=== PATIENT | female | born 1985 | race Caucasian/White ===

== ENCOUNTER 2021-11-22 12:59 | Emergency (ER) | payer SELFPAY ==
[2021-11-22 13:06] VITALS: BP 171/104; PULSE 110; RESP 16; O2SAT 95
--- NOTE | 2021-11-22 13:19 | W.ED.PSYCHS ---
HPI - Psych General: Chief Complaint: Psychiatric Symptoms Stated Complaint: PSYCH EVAL Time Seen by Provider: 11/22/21 13:01 Source: patient Mode of arrival: EMS Limitations: no limitations History of Present Illness: 36-year-old female presents to the emergency room stating she needs to be admitted to the stress unit. She not been taking any of her medications for the last 3 to 4 days. She has been staying at the [facility] and drank several beers this morning. She denies any homicidal or suicidal ideation no auditory or visual hallucinations. Patient has flat affect and is cooperative. She repeatedly denies any acute psychotic symptoms or suicidal or homicidal thoughts. When pressed as to what her specific complaint is she states she just does not feel she is doing well Onset (ago): hour(s) Duration: constant History of same: Yes Relieving factors: none Exacerbating factors: none Context: recent alcohol abuse Associated symptoms: Deny auditory hallucinations, visual hallucinations, delusions, depression, homicidal ideation, suicidal ideation or racing thoughts Treatments prior to arrival: none Review of Systems Const: Denies: fever(s), chills, body aches, change in appetite, fatigue or malaise ENMT: Denies: throat pain, ear or mastoid pain, nasal discharge or nasal congestion Card: Denies: chest pain, palpitations, irregular heart rhythm, edema, dyspnea on exertion or orthopnea Resp: Denies: dyspnea, productive cough or non-productive cough GI: Denies: abdominal pain, nausea, vomiting, hematemesis, coffee ground emesis, diarrhea, constipation, bloating, hematochezia or melena : Denies: flank pain, difficulty voiding, dysuria, urinary frequency or urinary urgency Skin/Breast: Denies: rash or pruritus Psych: Denies: depression, visual hallucinations, auditory hallucinations, suicidal ideation or homicidal ideation Physical Exam Const: GENERAL APPEARANCE: cooperative and comfortable ORIENTATION/CONSCIOUSNESS: Yes awake, Yes oriented to person, Yes oriented to place and Yes oriented to time HENMT: COMMON NORMALS: normocephalic, atraumatic and hearing grossly normal bilaterally HEAD & SCALP: normocephalic and atraumatic Neck/C-Spine: COMMON NORMALS: no JVD Resp: COMMON NORMALS: normal respiratory effort, No retractions, No use of accessory muscles and clear to auscultation bilaterally AUSCULTATION: clear to auscultation bilaterally Cardio: COMMON NORMALS: no JVD, regular rate, regular rhythm and No murmurs present (Cardio) RATE: regular rate RHYTHM: regular rhythm GI: COMMON NORMALS: Soft to palpation and No hepatosplenomegaly present AUSCULTATION: Yes normoactive bowel sounds PALPATION: Yes Soft to palpation, No Tenderness to palpation present (GI), No Guarding due to palpation present (GI) and Yes No hepatosplenomegaly present Extremity: COMMON NORMALS: normal to inspection, capillary refill normal, no clubbing, cyanosis or edema, no calf tenderness and no pedal edema Neuro: SENSORIUM/ORIENTATION: Yes oriented to person, Yes oriented to place and Yes oriented to time Psych: THOUGHT CONTENT: No delusions Skin: COMMON NORMALS: no rashes or lesions noted GENERAL SKIN EXAM: no rashes or lesions noted Course Vital Signs: Vital signs: Vital Signs Pulse Rate 110 H 11/22/21 13:06 Respiratory Rate 16 11/22/21 13:06 Blood Pressure 171/104 11/22/21 13:06 Pulse Oximetry 95 11/22/21 13:06 [facility] - Psych Medical Decision Making Patient blood alcohol is 0 but does have positive drug urine screen for methamphetamines. She is not acutely psychotic nor she homicidal or suicidal she is anxious in large part due to the methamphetamines we will discharge her home encouraged to follow-up with [facility] restart her regular medications. Medical Records I reviewed the patient's medical records. Lab Data I reviewed the patient's lab results. : 11/22/21 13:14 11/22/21 13:14 Laboratory Results WBC 9.7 10^3/uL (4.0-10.0) 11/22/21 13:14 RBC 5.07 10^6/uL (4.1-5.3) 11/22/21 13:14 Hgb 15.9 g/dL (11.5-15.3) H 11/22/21 13:14 Hct 44.7 % (37.0-47.0) 11/22/21 13:14 MCV 88.2 fl (81-99) 11/22/21 13:14 MCH 31.4 pg (28.0-34.0) 11/22/21 13:14 MCHC 35.6 g/dL (30.0-36.0) 11/22/21 13:14 RDW 11.8 % (12.1-15.1) L 11/22/21 13:14 Plt Count 319 10^3/cmm (130-400) 11/22/21 13:14 MPV 10.5 fL (7.4-10.4) H 11/22/21 13:14 Neut % (Auto) 61.7 % 11/22/21 13:14 Lymph % (Auto) 29.1 % 11/22/21 13:14 [place] % (Auto) 6.8 % 11/22/21 13:14 Eos % (Auto) 1.2 % 11/22/21 13:14 Baso % (Auto) 0.9 % 11/22/21 13:14 Neut # (Auto) 5.96 10^3/uL (1.8-7.7) 11/22/21 13:14 Lymph # (Auto) 2.8 10^3/uL (0.8-4.8) 11/22/21 13:14 [place] # (Auto) 0.7 10^3/uL (0.2-0.9) 11/22/21 13:14 Eos # (Auto) 0.1 10^3/uL (0.0-0.8) 11/22/21 13:14 Baso # (Auto) 0.1 10^3/uL (0.0-0.1) 11/22/21 13:14 Nucleated RBC % (auto) 0 % 11/22/21 13:14 Nucleated RBCs # 0.0 /100WBC 11/22/21 13:14 Sodium 138 mmol/L (136-145) 11/22/21 13:14 Potassium 3.7 mmol/L (3.5-5.1) 11/22/21 13:14 Chloride 101 mmol/L (98-107) 11/22/21 13:14 Carbon Dioxide 22 mmol/L (22-29) 11/22/21 13:14 Anion Gap 18.7 (5-19) 11/22/21 13:14 BUN 11 mg/dL (6-20) 11/22/21 13:14 Creatinine 0.7 mg/dL (0.5-0.9) 11/22/21 13:14 GFR Calculation 95.8 mL/min (90-130) 11/22/21 13:14 Glucose 112 mg/dL (65-115) 11/22/21 13:14 Calculated Osmolality 286 mOsm/kg (285-295) 11/22/21 13:14 Calcium 9.6 mg/dL (8.5-10.5) 11/22/21 13:14 Total Bilirubin 0.3 mg/dL (0.15-1.2) 11/22/21 13:14 AST 16 U/L (0-32) 11/22/21 13:14 ALT 20 U/L (0-33) 11/22/21 13:14 Alkaline Phosphatase 85 IU/L (35-105) 11/22/21 13:14 Total Protein 8.2 g/dL (6.6-8.7) 11/22/21 13:14 Albumin 4.9 g/dL (3.5-5.2) 11/22/21 13:14 Globulin 3.3 g/dL (1.3-4.6) 11/22/21 13:14 HCG, Qual Negative (Negative) 11/22/21 13:14 Urine Color Straw (Yellow) 11/22/21 13:11 Urine Appearance Clear (CLEAR) 11/22/21 13:11 Urine pH 5 (5-7) 11/22/21 13:11 Ur Specific [place] 1.020 (1.005-1.030) 11/22/21 13:11 Urine Protein 2+ (Negative) H 11/22/21 13:11 Urine Glucose (UA) Norm (Normal) 11/22/21 13:11 Urine Ketones Negative (Negative) 11/22/21 13:11 Urine Blood 3+ (Negative) H 11/22/21 13:11 Urine Nitrate Negative (Negative) 11/22/21 13:11 Urine Bilirubin Neg (Negative) 11/22/21 13:11 Urine Urobilinogen Norm mg/dL (Negative) 11/22/21 13:11 Ur Leukocyte Esterase Negative (Negative) 11/22/21 13:11 Urine RBC 0-4 /hpf (0-2) H 11/22/21 13:11 Urine WBC 0-4 /hpf (0-5) H 11/22/21 13:11 Ur Squamous Epith Cells 5-10 /hpf (0-5) H 11/22/21 13:11 Amorphous Sediment Not Reportable 11/22/21 13:11 Urine Bacteria Trace /hpf (NONE) 11/22/21 13:11 Urine Opiates Screen Negative ng/mL (Negative) 11/22/21 13:11 Ur Barbiturates Screen Negative ng/mL (Negative) 11/22/21 13:11 Ur Phencyclidine Scrn Negative ng/mL (Negative) 11/22/21 13:11 Ur Amphetamines Screen Positive ng/mL (Negative) H 11/22/21 13:11 U Benzodiazepines Scrn Negative ng/mL (Negative) 11/22/21 13:11 Urine Cocaine Screen Negative ng/mL (Negative) 11/22/21 13:11 U Marijuana (THC) Screen Positive ng/mL (Negative) H 11/22/21 13:11 Ethyl Alcohol 34 mg/dL (0-10) H 11/22/21 13:14 Discharge Plan Discharge Patient Disposition: Home Clinical Impression: Methamphetamine abuse, Acute anxiety Condition: Stable Prescriptions: No Action bupropion HCl 150 mg tablet sustained-release 12 hr 150 mg PO BID 0RF quetiapine 300 mg tablet 300 mg PO BEDTIME 0RF quetiapine 200 mg tablet 200 mg PO BEDTIME 0RF gabapentin 300 mg capsule 300 mg PO BEDTIME 0RF Invega Sustenna 234 mg/1.5 mL syringe 234 mg IM Q30D 0RF Discharge Orders: Discharge ED (Routine); Ordered 11/22/21 Ordered By: Chema Padilla Patient Instructions: Opioid Safety Coding Level of Care Code ED Jeeper Operator for Winnie Fwd Exam Comprehensive
[2021-11-22 13:40] LABS: Amphetamines Screen Urine Positive (Negative); Barbiturates Screen Urine Negative (Negative); Benzodiazepines Screen Urine Negative (Negative); Cocaine Screen Urine Negative (Negative); Opiate Screen Urine Negative (Negative); PCP Screen Urine Negative (Negative); THC Screen Urine Positive (Negative)
[2021-11-22 13:47] LABS: Basophils # 0.1 10^3/uL (0.0-0.1); Basophils % 0.9 %; Eosinophils # 0.1 10^3/uL (0.0-0.8); Eosinophils % 1.2 %; Hematocrit 44.7 % (37.0-47.0); Hemoglobin 15.9 g/dL (11.5-15.3); Lymphocytes # 2.8 10^3/uL (0.8-4.8); Lymphocytes % 29.1 %; Mean Corpuscular HGB Conc 35.6 g/dL (30.0-36.0); Mean Corpuscular Hemoglobin 31.4 pg (28.0-34.0); Mean Corpuscular Volume 88.2 fl (81-99); Mean Platelet Volume 10.5 fL (7.4-10.4); Monocytes # 0.7 10^3/uL (0.2-0.9); Monocytes % 6.8 %; Neutrophils # 5.96 10^3/uL (1.8-7.7); Neutrophils % 61.7 %; Nucleated Red Blood Cells % 0 %; Platelet Count 319 10^3/cmm (130-400); Red Blood Count 5.07 10^6/uL (4.1-5.3); Red Cell Distribution Width 11.8 % (12.1-15.1); White Blood Count 9.7 10^3/uL (4.0-10.0)
[2021-11-22 13:49] LABS: Bilirubin Urine Neg (Negative); Blood Urine 3+ (Negative); Glucose Urine UA Norm (Normal); Ketones Urine Negative (Negative); Nitrate Urine Negative (Negative); Protein Urine 2+ (Negative); Urine Appearance Clear (CLEAR); Urine Color Straw (Yellow); Urobilinogen Urine Norm (Negative); pH Urine 5 (5-7)
[2021-11-22 13:50] LABS: Add Urine Culture? No; Add Urine Microscopic? YES; Bacteria Urine TRACE /hpf; Leukocyte Esterase Urine Negative (Negative); RBC Urine 0-4 /hpf (0-2); WBC Urine 0-4 /hpf (0-5)
[2021-11-22 14:08] LABS: Alanine Aminotransferase 20 U/L (0-33); Albumin Level 4.9 g/dL (3.5-5.2); Alcohol Level 34 mg/dL (0-10); Alkaline Phosphatase 85 IU/L (35-105); Anion Gap 18.7 (5-19); Aspartate Amino Transferase 16 U/L (0-32); Blood Urea Nitrogen 11 mg/dL (6-20); Calcium 9.6 mg/dL (8.5-10.5); Carbon Dioxide 22 mmol/L (22-29); Chloride 101 mmol/L (98-107); Globulin 3.3 g/dL (1.3-4.6); Glomerular Filtration Rate 95.8 mL/min (90-130); Glucose 112 mg/dL (65-115); Osmolality Calculated 286 mOsm/kg (285-295); Potassium 3.7 mmol/L (3.5-5.1); Sodium 138 mmol/L (136-145); Total Bilirubin 0.3 mg/dL (0.15-1.2); Total Protein 8.2 g/dL (6.6-8.7)
[2021-11-22 14:22] LABS: HCG, Serum Qual Negative (Negative)
[2021-11-22] MEDS: LORazepam 2 mg Tablet PO (14:34)
== END 2021-11-22 14:46 | disposition home or self-care (01) ==
PROVIDERS: Emergency Provider Family Medicine
DX: F15.10 Other stimulant abuse, uncomplicated (principal); F41.9 Anxiety disorder, unspecified; F12.10 Cannabis abuse, uncomplicated
CPT/HCPCS: 80053; 80306; 80307; 81001; 84703; 85025; 99283